=== PATIENT | male | born 1965 | race Caucasian/White ===

== ENCOUNTER → 2019-07-15 | Outpatient (CLI) | payer BC ==
[2019-07-15 13:27] VITALS: BP 146/89; PULSE 76; TEMP 99.3; BMI 45.3
--- NOTE | 2019-07-15 15:52 | P.HPBAR ---
Bariatric H&P - History & Physicial H&P Date: 07/15/19 History & Physicial: Visit/CC: band fill Patient initial contact: Initial weight: 181.437 kg Initial weight in pounds: 400.00 Height: 5 ft 11 in Initial BMI: 55.7 Last weight: Current weight: 147.418 kg Current weight in pounds: 325.00 Current BMI: 45.3 [place] body weight (based on NIH guidelines): 78.018 kg Excess body weight loss: 32.8% The patient is a 53 year-old M who presents for Bariatric Assessment. Patient is requesting LAP-BAND adjustment. He has not been seen in several years. He has some mild dysphagia. Past Medical History Past Medical History: Osteoarthritis (OA) Additional Past Medical History / Comment(s): left knee OA, History of Any Multi-Drug Resistant Organisms: None Reported Past Surgical History: Bariatric Surgery, Hernia Repair Additional Past Surgical History / Comment(s): umbilical hernia repaired with mesh at [facility], lap band 2012, Past Anesthesia/Blood Transfusion Reactions: No Reported Reaction Smoking Status: Never smoker Surgical - Exam Vital Signs Temp Pulse BP 99.3 F 76 146/89 07/15/19 13:24 07/15/19 13:24 07/15/19 13:24 - General well developed, well nourished, no distress - Eyes PERRL - ENT normal pinna - Abdomen Abdomen: soft, non tender Bariatric Assessment & Plan Plan: Patient LAP-BAND was just. 11.5 mL removal LAP-BAND. He will follow-up in 4 weeks. Bariatric Checklist Checklist: Plan: Checklist: EGD: 1. Hiatal hernia: 2. H. Pylori: HgbA1c: Vitamin D: Smoking: Never smoker Primary care physician referral: ([place]) Psychiatry clearance: Cardiology clearance: Sleep study: Diet journal: VTE risk score: VTE risk level: Rehab needs at discharge:
== END | disposition home or self-care (01) ==
LOC: BARWHC3 12:42
PROVIDERS: ATTEND Surgery
DX: Z46.51 Encounter for fitting and adjustment of gastric lap band (principal); Z98.84 Bariatric surgery status; Z98.890 Other specified postprocedural states
CPT/HCPCS: 99202

== ENCOUNTER → 2019-08-12 | Outpatient (CLI) | payer BC ==
[2019-08-12 13:24] VITALS: BP 155/99; PULSE 80; RESP 16; TEMP 97.9; BMI 46.7
--- NOTE | 2019-08-19 14:43 | P.HPBAR ---
Bariatric H&P - History & Physicial H&P Date: 08/12/19 History & Physicial: Visit/CC: band adj Patient initial contact: Initial weight: 181.437 kg Initial weight in pounds: 400.00 Height: 5 ft 11 in Initial BMI: 55.7 Last weight: Current weight: 151.953 kg Current weight in pounds: 335.00 Current BMI: 46.7 [place] body weight (based on NIH guidelines): 78.018 kg Excess body weight loss: 28.5% The patient is a 53 year-old M who presents for Bariatric Assessment. Patient presents today for her LAP-BAND adjustment. He is currently hungry and requesting a fill. Past Medical History Past Medical History: Osteoarthritis (OA) Additional Past Medical History / Comment(s): left knee OA, History of Any Multi-Drug Resistant Organisms: None Reported Past Surgical History: Bariatric Surgery, Hernia Repair Additional Past Surgical History / Comment(s): umbilical hernia repaired with mesh at [facility], lap band 2012, Past Anesthesia/Blood Transfusion Reactions: No Reported Reaction Past Psychological History: No Psychological Hx Reported Smoking Status: Never smoker Past Alcohol Use History: Occasional Past Drug Use History: None Reported Surgical - Exam Vital Signs Temp Pulse Resp BP 97.9 F 80 16 155/99 08/12/19 13:19 08/12/19 13:19 08/12/19 13:19 08/12/19 13:19 - General well developed, well nourished, no distress - Eyes PERRL - ENT normal pinna - Respiratory normal expansion - Cardiovascular Rhythm: regular - Abdomen Abdomen: soft, non tender Bariatric Assessment & Plan Plan: Patient's lap band was adjusted. 6.5 mL added to the band. He will follow-up in 4 weeks. Bariatric Checklist Checklist: Plan: Checklist: EGD: 1. Hiatal hernia: 2. H. Pylori: HgbA1c: Vitamin D: Smoking: Never smoker Primary care physician referral: ([place]) Psychiatry clearance: Cardiology clearance: Sleep study: Diet journal: VTE risk score: VTE risk level: Rehab needs at discharge:
== END | disposition home or self-care (01) ==
LOC: BARWHC3 12:53
PROVIDERS: ATTEND Surgery
DX: Z46.51 Encounter for fitting and adjustment of gastric lap band (principal); Z98.84 Bariatric surgery status
CPT/HCPCS: 99212

== ENCOUNTER → 2019-09-09 | Outpatient (CLI) | payer BC ==
--- NOTE | 2019-09-10 12:49 | P.HPBAR ---
Bariatric H&P - History & Physicial H&P Date: 09/09/19 History & Physicial: Visit/CC: Patient initial contact: Initial weight: 181.437 kg Initial weight in pounds: Height: Initial BMI: Last weight: Current weight: Current weight in pounds: Current BMI: [place] body weight (based on NIH guidelines): Excess body weight loss: The patient is a 53 year-old M who presents for Bariatric Assessment. Patient presents today for LAP-BAND adjustment. He currently is hungry requesting a fill. Past Medical History Past Medical History: Osteoarthritis (OA) Additional Past Medical History / Comment(s): left knee OA, History of Any Multi-Drug Resistant Organisms: None Reported Past Surgical History: Bariatric Surgery, Hernia Repair Additional Past Surgical History / Comment(s): umbilical hernia repaired with mesh at [facility], lap band 2012, Past Anesthesia/Blood Transfusion Reactions: No Reported Reaction Past Psychological History: No Psychological Hx Reported Smoking Status: Never smoker Past Alcohol Use History: Occasional Past Drug Use History: None Reported Surgical - Exam - General well developed, well nourished, no distress - Eyes PERRL - Abdomen Abdomen: soft, non tender Bariatric Assessment & Plan Plan: Patient LAP-BAND was adjusted. He is he had 3 mL added to the band currently is 9.5 mL in the band. He'll follow-up in 4 weeks. Bariatric Checklist Checklist: Plan: Checklist: EGD: 1. Hiatal hernia: 2. H. Pylori: HgbA1c: Vitamin D: Smoking: Never smoker Primary care physician referral: ([place]) Psychiatry clearance: Cardiology clearance: Sleep study: Diet journal: VTE risk score: VTE risk level: Rehab needs at discharge:
[2019-09-10 13:34] VITALS: BMI 46.3
== END | disposition home or self-care (01) ==
LOC: BARWHC3 13:04
PROVIDERS: ATTEND Surgery
DX: Z46.51 Encounter for fitting and adjustment of gastric lap band (principal); Z98.84 Bariatric surgery status
CPT/HCPCS: 99212

== ENCOUNTER → 2020-02-03 | Outpatient (CLI) | payer BC ==
[2020-02-03 13:37] VITALS: BP 144/92; PULSE 71; RESP 16; TEMP 97.8; BMI 48.1
--- NOTE | 2020-02-03 14:18 | P.HPBAR ---
Bariatric H&P - History & Physicial H&P Date: 02/03/20 History & Physicial: Visit/CC: Band fill Patient initial contact: Initial weight: 181.437 kg Initial weight in pounds: 400.00 Height: 5 ft 11 in Initial BMI: 55.7 Last weight: Current weight: 156.489 kg Current weight in pounds: 345.00 Current BMI: 48.1 [place] body weight (based on NIH guidelines): 78.018 kg Excess body weight loss: 24.1% The patient is a 54 year-old M who presents for Bariatric Assessment. Patient rents today for her LAP-BAND adjustment. He is currently hungry. Past Medical History Past Medical History: Osteoarthritis (OA) Additional Past Medical History / Comment(s): left knee OA, History of Any Multi-Drug Resistant Organisms: None Reported Past Surgical History: Bariatric Surgery, Hernia Repair Additional Past Surgical History / Comment(s): umbilical hernia repaired with mesh at [facility], lap band 2012, Past Anesthesia/Blood Transfusion Reactions: No Reported Reaction Past Psychological History: No Psychological Hx Reported Smoking Status: Unknown if ever smoked Past Alcohol Use History: Occasional Past Drug Use History: None Reported Surgical - Exam Vital Signs Temp Pulse Resp BP 97.8 F 71 16 144/92 02/03/20 13:34 02/03/20 13:34 02/03/20 13:34 02/03/20 13:34 - General well developed, well nourished, no distress - Eyes PERRL - ENT normal pinna - Neck no masses - Respiratory normal expansion - Cardiovascular Rhythm: regular - Abdomen Abdomen: soft, non tender Bariatric Assessment & Plan Plan: Status post lap band surgery. Patient had an adjustment. 1 mL added to his band. He currently is 10.5 mL in the band. He'll follow-up in 4 weeks. Bariatric Checklist Checklist: Plan: Checklist: EGD: 1. Hiatal hernia: 2. H. Pylori: HgbA1c: Vitamin D: Smoking: Never smoker Primary care physician referral: ([place]) Psychiatry clearance: Cardiology clearance: Sleep study: Diet journal: VTE risk score: VTE risk level: Rehab needs at discharge:
== END | disposition home or self-care (01) ==
LOC: BARWHC3 13:10
PROVIDERS: ATTEND Surgery
DX: Z46.51 Encounter for fitting and adjustment of gastric lap band (principal); Z98.84 Bariatric surgery status
CPT/HCPCS: 97803; 99212

== ENCOUNTER → 2020-03-16 | Outpatient (CLI) | payer BC ==
[2020-03-16 14:06] VITALS: BP 144/95; PULSE 105; TEMP 98.3; BMI 47.5
--- NOTE | 2020-03-16 14:07 | P.HPBAR ---
Bariatric H&P - History & Physicial H&P Date: 03/16/20 History & Physicial: Visit/CC: Patient initial contact: Initial weight: 181.437 kg Initial weight in pounds: Height: 5 ft 11 in Initial BMI: Last weight: Current weight: 154.675 kg Current weight in pounds: Current BMI: [place] body weight (based on NIH guidelines): Excess body weight loss: The patient is a 54 year-old M who presents for Bariatric Assessment. Patient presents today for her LAP-BAND follow-up. He states he feels well. He has had no significant dysphagia. He is minimal GERD. He lost 4 pounds since his last visit. Past Medical History Past Medical History: Osteoarthritis (OA) Additional Past Medical History / Comment(s): left knee OA, History of Any Multi-Drug Resistant Organisms: None Reported Past Surgical History: Bariatric Surgery, Hernia Repair Additional Past Surgical History / Comment(s): umbilical hernia repaired with mesh at [facility], lap band 2012, Past Anesthesia/Blood Transfusion Reactions: No Reported Reaction Past Psychological History: No Psychological Hx Reported Smoking Status: Never smoker Past Alcohol Use History: Occasional Past Drug Use History: None Reported Surgical - Exam - General well developed, well nourished, no distress - Eyes PERRL - ENT normal pinna - Neck no masses - Respiratory normal expansion - Cardiovascular Rhythm: regular - Abdomen Abdomen: soft, non tender Bariatric Assessment & Plan Plan: Patient's lap band appears to be appropriate adjusted. He'll follow-up in 4 weeks. His GERD is minimal will be observed. Bariatric Checklist Checklist: Plan: Checklist: EGD: 1. Hiatal hernia: 2. H. Pylori: HgbA1c: Vitamin D: Smoking: Never smoker Primary care physician referral: ([place]) Psychiatry clearance: Cardiology clearance: Sleep study: Diet journal: VTE risk score: VTE risk level: Rehab needs at discharge:
== END | disposition home or self-care (01) ==
LOC: BARWHC3 12:58
PROVIDERS: ATTEND Surgery
DX: Z48.815 Encounter for surgical aftercare following surgery on the digestive system (principal); K21.9 Gastro-esophageal reflux disease without esophagitis; Z98.84 Bariatric surgery status
CPT/HCPCS: 99211

== ENCOUNTER → 2020-04-20 | Outpatient (CLI) | payer BC ==
[2020-04-20 14:00] VITALS: BP 159/99; PULSE 102; RESP 18; TEMP 98.5; BMI 46.8
--- NOTE | 2020-04-20 14:28 | P.HPBAR ---
Bariatric H&P - History & Physicial H&P Date: 04/20/20 History & Physicial: Visit/CC: lap band f/u Patient initial contact: Initial weight: 181.437 kg Initial weight in pounds: 400.00 Height: 5 ft 11 in Initial BMI: 55.7 Last weight: Current weight: 152.407 kg Current weight in pounds: 336.00 Current BMI: 46.8 [place] body weight (based on NIH guidelines): 78.018 kg Excess body weight loss: 28.0% The patient is a 54 year-old M who presents for Bariatric Assessment. Patient presents today for lab band follow. Some complaints of some minimal GERD. He has lost some weight since his last visit. He feels reasonably good zone. Past Medical History Past Medical History: Osteoarthritis (OA) Additional Past Medical History / Comment(s): left knee OA, steroid injections in left knee [id number]. compression stockings bilat lower extremities History of Any Multi-Drug Resistant Organisms: None Reported Past Surgical History: Bariatric Surgery, Hernia Repair Additional Past Surgical History / Comment(s): umbilical hernia repaired with mesh at [facility], lap band 2012, Past Anesthesia/Blood Transfusion Reactions: No Reported Reaction Past Psychological History: No Psychological Hx Reported Smoking Status: Never smoker Past Alcohol Use History: Occasional Past Drug Use History: None Reported Surgical - Exam Vital Signs Temp Pulse Resp BP 98.5 F 102 H 18 159/99 04/20/20 13:54 04/20/20 13:54 04/20/20 13:54 04/20/20 13:54 - General well developed, well nourished, no distress - Eyes PERRL - ENT normal pinna - Neck no masses - Respiratory normal expansion - Cardiovascular Rhythm: regular - Abdomen Abdomen: soft, non tender Bariatric Assessment & Plan Plan: Status post lap band procedure. Patient is doing quite well. His GERD is minimal will be observed. He'll follow-up in 4 weeks. Bariatric Checklist Checklist: Plan: Checklist: EGD: 1. Hiatal hernia: 2. H. Pylori: HgbA1c: Vitamin D: Smoking: Never smoker Primary care physician referral: ([place]) Psychiatry clearance: Cardiology clearance: Sleep study: Diet journal: VTE risk score: VTE risk level: Rehab needs at discharge:
== END | disposition home or self-care (01) ==
LOC: BARWHC3 13:49
PROVIDERS: ATTEND Surgery
DX: Z46.51 Encounter for fitting and adjustment of gastric lap band (principal); Z98.84 Bariatric surgery status; Z98.890 Other specified postprocedural states
CPT/HCPCS: 99211

== ENCOUNTER → 2020-05-25 | Outpatient (CLI) | payer BC ==
[2020-05-25 15:08] VITALS: BP 157/91; PULSE 88; RESP 16; TEMP 98.3; BMI 47.5
--- NOTE | 2020-06-04 11:53 | P.HPBAR ---
Bariatric H&P - History & Physicial H&P Date: 05/25/20 History & Physicial: Visit/CC: Band F/U Patient initial contact: Initial weight: 181.437 kg Initial weight in pounds: 400.00 Height: 5 ft 11 in Initial BMI: 55.7 Last weight: Current weight: 154.675 kg Current weight in pounds: 341.00 Current BMI: 47.5 [place] body weight (based on NIH guidelines): 78.018 kg Excess body weight loss: 25.8% The patient is a 54 year-old M who presents for Bariatric Assessment. Patient presents today for band follow up. She's had some mild GERD. Past Medical History Past Medical History: Osteoarthritis (OA) Additional Past Medical History / Comment(s): left knee OA, steroid injections in left knee [id number]. compression stockings bilat lower extremities History of Any Multi-Drug Resistant Organisms: None Reported Past Surgical History: Bariatric Surgery, Hernia Repair Additional Past Surgical History / Comment(s): umbilical hernia repaired with m esh at [facility], lap band 2012, Past Anesthesia/Blood Transfusion Reactions: No Reported Reaction Past Psychological History: No Psychological Hx Reported Smoking Status: Never smoker Past Alcohol Use History: Occasional Past Drug Use History: None Reported Surgical - Exam Vital Signs Temp Pulse Resp BP 98.3 F 88 16 157/91 05/25/20 15:05 05/25/20 15:05 05/25/20 15:05 05/25/20 15:05 - General well developed, well nourished, no distress - Eyes PERRL - ENT normal pinna - Neck no masses - Respiratory normal expansion - Cardiovascular Rhythm: regular - Abdomen Abdomen: soft, non tender Bariatric Assessment & Plan Plan: Status post lap band procedure. Patient's GERD is minimal will be observed. He'll follow-up in one month for refill of his band Bariatric Checklist Checklist: Plan: Checklist: EGD: 1. Hiatal hernia: 2. H. Pylori: HgbA1c: Vitamin D: Smoking: Never smoker Primary care physician referral: ([place]) Psychiatry clearance: Cardiology clearance: Sleep study: Diet journal: VTE risk score: VTE risk level: Rehab needs at discharge:
== END | disposition home or self-care (01) ==
LOC: BARWHC3 13:04
PROVIDERS: ATTEND Surgery
DX: Z46.51 Encounter for fitting and adjustment of gastric lap band (principal); K21.9 Gastro-esophageal reflux disease without esophagitis; Z98.84 Bariatric surgery status
CPT/HCPCS: 99211

== ENCOUNTER → 2020-06-22 | Outpatient (CLI) | payer BC ==
[2020-06-22 13:04] VITALS: BP 150/88; PULSE 75; RESP 18; TEMP 97.6; BMI 46.7
--- NOTE | 2020-06-22 14:35 | P.HPBAR ---
Bariatric H&P - History & Physicial H&P Date: 06/22/20 History & Physicial: Visit/CC: lap band follow up Patient initial contact: Initial weight: 181.437 kg Initial weight in pounds: 400.00 Height: 5 ft 11 in Initial BMI: 55.7 Last weight: Current weight: 151.953 kg Current weight in pounds: 335.00 Current BMI: 46.7 [place] body weight (based on NIH guidelines): 78.018 kg Excess body weight loss: 28.5% The patient is a 54 year-old M who presents for Bariatric Assessment. Patient presents today for lab band follow. He is loss (6 pounds last visit. He's had some minimal GERD. Past Medical History Past Medical History: Osteoarthritis (OA) Additional Past Medical History / Comment(s): left knee OA, steroid injections in left knee [id number]. compression stockings bilat lower extremities History of Any Multi-Drug Resistant Organisms: None Reported Past Surgical History: Bariatric Surgery, Hernia Repair Additional Past Surgical History / Comment(s): umbilical hernia repaired with mesh at [facility], lap band 2012, Past Anesthesia/Blood Transfusion Reactions: No Reported Reaction Past Psychological History: No Psychological Hx Reported Smoking Status: Never smoker Past Alcohol Use History: Occasional Past Drug Use History: None Reported Surgical - Exam Vital Signs Temp Pulse Resp BP 97.6 F 75 18 150/88 06/22/20 13:03 06/22/20 13:03 06/22/20 13:03 06/22/20 13:03 - General well developed, well nourished, no distress - Eyes PERRL - Abdomen Abdomen: soft, non tender Bariatric Assessment & Plan Plan: Status post lap band procedure. Patient is doing well. His GERD is minimal and will be observed. He'll follow-up in 4 weeks. Bariatric Checklist Checklist: Plan: Checklist: EGD: 1. Hiatal hernia: 2. H. Pylori: HgbA1c: Vitamin D: Smoking: Never smoker Primary care physician referral: ([place]) Psychiatry clearance: Cardiology clearance: Sleep study: Diet journal: VTE risk score: VTE risk level: Rehab needs at discharge:
== END | disposition home or self-care (01) ==
LOC: BARWHC3 12:51
PROVIDERS: ATTEND Surgery
DX: Z48.815 Encounter for surgical aftercare following surgery on the digestive system (principal); K21.9 Gastro-esophageal reflux disease without esophagitis; Z98.84 Bariatric surgery status
CPT/HCPCS: 99211

== ENCOUNTER → 2020-07-27 | Outpatient (CLI) | payer BC ==
[2020-07-27 13:18] VITALS: BP 152/92; PULSE 100; RESP 18; TEMP 97.4; BMI 46.3
--- NOTE | 2020-08-31 11:12 | P.HPBAR ---
Bariatric H&P - History & Physicial H&P Date: 07/27/20 History & Physicial: Visit/CC: follow up / lap band Patient initial contact: Initial weight: 181.437 kg Initial weight in pounds: 400.00 Height: 5 ft 11 in Initial BMI: 55.7 Last weight: Current weight: 150.593 kg Current weight in pounds: 332.00 Current BMI: 46.3 [place] body weight (based on NIH guidelines): 78.018 kg Excess body weight loss: 29.8% The patient is a 54 year-old M who presents for Bariatric Assessment. Patient presents today for lab band follow up. He states he feels well. He's had some minimal GERD. He's had good weight loss. Past Medical History Past Medical History: Osteoarthritis (OA) Additional Past Medical History / Comment(s): left knee OA, steroid injections in left knee [id number]. compression stockings bilat lower extremities History of Any Multi-Drug Resistant Organisms: None Reported Past Surgical History: Bariatric Surgery, Hernia Repair Additional Past Surgical History / Comment(s): umbilical hernia repaired with mesh at [facility], lap band 2012, Past Anesthesia/Blood Transfusion Reactions: No Reported Reaction Past Psychological History: No Psychological Hx Reported Smoking Status: Never smoker Past Alcohol Use History: Occasional Past Drug Use History: None Reported Surgical - Exam Vital Signs Temp Pulse Resp BP 97.4 F L 100 18 152/92 07/27/20 13:14 07/27/20 13:14 07/27/20 13:14 07/27/20 13:14 - General well developed, well nourished, no distress - Eyes PERRL - ENT normal pinna - Neck no masses - Respiratory normal expansion - Cardiovascular Rhythm: regular - Abdomen Abdomen: soft, non tender Bariatric Assessment & Plan Plan: Resolving morbid obesity.. Patient's GERD is minimal obesity observed. He'll follow-up in 4 weeks. Bariatric Checklist Checklist: Plan: Checklist: EGD: 1. Hiatal hernia: 2. H. Pylori: HgbA1c: Vitamin D: Smoking: Never smoker Primary care physician referral: ([place]) Psychiatry clearance: Cardiology clearance: Sleep study: Diet journal: VTE risk score: VTE risk level: Rehab needs at discharge:
== END | disposition home or self-care (01) ==
LOC: BARWHC3 13:06
PROVIDERS: ATTEND Surgery
DX: Z09 Encounter for follow-up examination after completed treatment for conditions other than malignant neoplasm (principal); Z98.84 Bariatric surgery status; E66.01 Morbid (severe) obesity due to excess calories
CPT/HCPCS: 99211

== ENCOUNTER → 2020-08-24 | Outpatient (CLI) | payer BC | END | disposition home or self-care (01) | LOC: BARWHC3 13:05 | PROVIDERS: ATTEND Surgery | DX: Z53.9 Procedure and treatment not carried out, unspecified reason (principal) ==

== ENCOUNTER → 2020-10-19 | Outpatient (CLI) | payer BC ==
[2020-10-19 14:10] VITALS: BP 150/84; PULSE 82; RESP 18; TEMP 98.2; BMI 45.7
--- NOTE | 2020-10-19 15:23 | P.HPBAR ---
Bariatric H&P - History & Physicial H&P Date: 10/19/20 History & Physicial: Visit/CC: lap band follow up Patient initial contact: Initial weight: 181.437 kg Initial weight in pounds: 400.00 Height: 5 ft 11 in Initial BMI: 55.7 Last weight: Current weight: 148.778 kg Current weight in pounds: 328.00 Current BMI: 45.7 [place] body weight (based on NIH guidelines): 78.018 kg Excess body weight loss: 31.5% The patient is a 54 year-old M who presents for Bariatric Assessment. Patient safe for her LAP-BAND follow-up. He's had some points of GERD. Cells in his complaints of pain in his right knee. He is appearance scheduled for right knee replacement for osteoarthritis. Past Medical History Past Medical History: Osteoarthritis (OA) Additional Past Medical History / Comment(s): left knee OA, steroid injections in left knee [id number]. compression stockings bilat lower extremities History of Any Multi-Drug Resistant Organisms: None Reported Past Surgical History: Bariatric Surgery, Hernia Repair Additional Past Surgical History / Comment(s): umbilical hernia repaired with mesh at [facility], lap band 2012, Past Anesthesia/Blood Transfusion Reactions: No Reported Reaction Past Psychological History: No Psychological Hx Reported Smoking Status: Never smoker Past Alcohol Use History: Occasional Past Drug Use History: None Reported Surgical - Exam Vital Signs Temp Pulse Resp BP 98.2 F 82 18 150/84 10/19/20 14:07 10/19/20 14:07 10/19/20 14:07 10/19/20 14:07 - General well developed, well nourished, no distress - Eyes PERRL - ENT normal pinna, normal nares - Neck no masses, no bruits - Respiratory normal expansion - Cardiovascular Rhythm: regular - Abdomen Abdomen: soft, non tender Bariatric Assessment & Plan Plan: Status post lap band procedure patient is minimal was observed. Patient will have his arthritis address in his right knee with arthroplasty next week. He'll follow-up in 8 weeks. Bariatric Checklist Checklist: Plan: Checklist: EGD: 1. Hiatal hernia: 2. H. Pylori: HgbA1c: Vitamin D: Smoking: Never smoker Primary care physician referral: ([place]) Psychiatry clearance: Cardiology clearance: Sleep study: Diet journal: VTE risk score: VTE risk level: Rehab needs at discharge:
== END ==
LOC: BARWHC3 13:46
PROVIDERS: ATTEND Surgery
DX: E66.01 Morbid (severe) obesity due to excess calories (principal); Z68.42 Body mass index [BMI] 45.0-49.9, adult; Z98.84 Bariatric surgery status; Z46.51 Encounter for fitting and adjustment of gastric lap band; M17.11 Unilateral primary osteoarthritis, right knee
CPT/HCPCS: 99211

== ENCOUNTER → 2020-12-21 | Outpatient (CLI) | payer BC ==
[2020-12-21 14:03] VITALS: BP 156/97; PULSE 101; RESP 18; TEMP 97.9; BMI 45.8
--- NOTE | 2021-02-24 11:41 | P.HPBAR ---
Bariatric H&P - History & Physicial H&P Date: 12/21/20 History & Physicial: Visit/CC: lap band follow up Patient initial contact: Initial weight: 181.437 kg Initial weight in pounds: 400.00 Height: 5 ft 11 in Initial BMI: 55.7 Last weight: Current weight: 149.232 kg Current weight in pounds: 329.00 Current BMI: 45.8 [place] body weight (based on NIH guidelines): 78.018 kg Excess body weight loss: 31.1% The patient is a 55 year-old M who presents for Bariatric Assessment. Patient presents today for bariatric follow. He's had some complaints of GERD. He denies any dysphagia. He does not wish to have an adjustment of his band. Past Medical History Past Medical History: Osteoarthritis (OA) Additional Past Medical History / Comment(s): left knee OA, steroid injections in left knee [id number]. compression stockings bilat lower extremities History of Any Multi-Drug Resistant Organisms: None Reported Past Surgical History: Bariatric Surgery, Hernia Repair Additional Past Surgical History / Comment(s): umbilical hernia repaired with mesh at [facility], lap band 2012, Past Anesthesia/Blood Transfusion Reactions: No Reported Reaction Past Psychological History: No Psychological Hx Reported Smoking Status: Never smoker Past Alcohol Use History: Occasional Past Drug Use History: None Reported Surgical - Exam Vital Signs Temp Pulse Resp BP 97.9 F 101 H 18 156/97 12/21/20 14:00 12/21/20 14:00 12/21/20 14:00 12/21/20 14:00 - General well developed, well nourished, no distress - Eyes PERRL - ENT normal pinna, normal nares - Neck no masses - Respiratory normal expansion - Cardiovascular Rhythm: regular - Abdomen Abdomen: soft, non tender, no guarding, no rigid, no rebound Bariatric Assessment & Plan Plan: Status post lap band procedure. Patient has some mild GERD. He does not wish to have any adjustments done today. Bariatric Checklist Checklist: Plan: Checklist: EGD: 1. Hiatal hernia: 2. H. Pylori: HgbA1c: Vitamin D: Smoking: Never smoker Primary care physician referral: ([place]) Psychiatry clearance: Cardiology clearance: Sleep study: Diet journal: VTE risk score: VTE risk level: Rehab needs at discharge:
== END ==
LOC: BARWHC3 13:16
PROVIDERS: ATTEND Surgery
DX: Z09 Encounter for follow-up examination after completed treatment for conditions other than malignant neoplasm (principal); K21.9 Gastro-esophageal reflux disease without esophagitis; Z98.84 Bariatric surgery status; M17.12 Unilateral primary osteoarthritis, left knee; Z79.82 Long term (current) use of aspirin
CPT/HCPCS: 99211

== ENCOUNTER → 2021-02-15 | Outpatient (CLI) | payer BC ==
[2021-02-15 14:04] VITALS: BP 158/82; PULSE 82; TEMP 98; BMI 465.6
--- NOTE | 2021-02-15 15:33 | P.HPBAR ---
Bariatric H&P - History & Physicial H&P Date: 02/15/21 History & Physicial: Visit/CC: lap band follow up Patient initial contact: Initial weight: 181.437 kg Initial weight in pounds: 400.00 Height: 5 ft 11 in Initial BMI: 55.7 Last weight: Current weight: 153.768 kg Current weight in pounds: 3339.00 Current BMI: 465.6 [place] body weight (based on NIH guidelines): 78.018 kg Excess body weight loss: The patient is a 55 year-old M who presents for Bariatric Assessment. Patient presents today for LAP-BAND follow-up. He has had some minimal GERD. His has gained approximately 10 pounds. Past Medical History Past Medical History: Osteoarthritis (OA) Additional Past Medical History / Comment(s): left knee OA, steroid injections in left knee [id number]. compression stockings bilat lower extremities History of Any Multi-Drug Resistant Organisms: None Reported Past Surgical History: Bariatric Surgery, Hernia Repair Additional Past Surgical History / Comment(s): umbilical hernia repaired with mesh at [facility], lap band 2012, Past Anesthesia/Blood Transfusion Reactions: No Reported Reaction Past Psychological History: No Psychological Hx Reported Smoking Status: Never smoker Past Alcohol Use History: Occasional Past Drug Use History: None Reported Surgical - Exam Vital Signs Temp Pulse BP 98 F 82 158/82 02/15/21 13:43 02/15/21 13:43 02/15/21 13:43 - General well developed, well nourished, no distress - Eyes PERRL - Abdomen Abdomen: soft, non tender Bariatric Assessment & Plan Plan: Patient's ears minimal. He will try to increase his exercise Bariatric Checklist Checklist: Plan: Checklist: EGD: 1. Hiatal hernia: 2. H. Pylori: HgbA1c: Vitamin D: Smoking: Never smoker Primary care physician referral: ([place]) Psychiatry clearance: Cardiology clearance: Sleep study: Diet journal: VTE risk score: VTE risk level: Rehab needs at discharge:
== END ==
LOC: BARWHC3 13:25
PROVIDERS: ATTEND Surgery
DX: Z09 Encounter for follow-up examination after completed treatment for conditions other than malignant neoplasm (principal); K21.9 Gastro-esophageal reflux disease without esophagitis; M17.12 Unilateral primary osteoarthritis, left knee; Z98.84 Bariatric surgery status
CPT/HCPCS: 99211